=== PATIENT | male | born 1940 | race Caucasian/White ===

== ENCOUNTER 2019-06-30 07:52 | Inpatient (IN) | payer MEDICARE, OTHER ==
[2019-06-22 14:45] LABS: BASOPHILS # (AUTO) 0.1 X10'3 (0-0.2); BASOPHILS % (AUTO) 0.8 % (0-1); EOSINOPHILS # (AUTO) 0.2 X10'3 (0-0.9); EOSINOPHILS % (AUTO) 2.7 % (0-6); LYMPHOCYTES # (AUTO) 1.5 X10'3 (1.1-4.8); LYMPHOCYTES % (AUTO) 19.1 % (21-51); MEAN CORPUSCULAR HEMOGLOBIN 29.9 PG (27.0-31.0); MEAN CORPUSCULAR HGB CONC 33.8 g/dL (33.0-36.5); MEAN CORPUSCULAR VOLUME 88.3 FL (78-98); MEAN PLATELET VOLUME 7.8 FL (7.4-10.4); MONOCYTES # (AUTO) 0.6 X10'3 (0-0.9); MONOCYTES % (AUTO) 7.9 % (2-12); NEUTROPHILS # (AUTO) 5.4 X10'3 (1.8-7.7); NEUTROPHILS % (AUTO) 69.5 % (42-75); PRE OP HEMOGLOBIN 15.2 g/dL (14.0-17.9); PRE OP PLATELET COUNT 273 X10'3 (140-440); RED CELL DISTRIBUTION WIDTH 13.6 % (11.5-14.5)
[2019-06-22 14:51] LABS: ALBUMIN 3.7 G/DL (3.4-5.0); ALBUMIN/GLOBULIN RATIO 1.2 (1.1-1.5); ALKALINE PHOSPHATASE 81 IU/L (46-116); BLOOD UREA NITROGEN 25 MG/DL (7-18); BUN/CREATININE RATIO 17.7 (5.4-32.0); CALCIUM 9.1 MG/DL (8.5-10.1); CHLORIDE 105 MMOL/L (99-107); CREATININE 1.41 MG/DL (0.60-1.10); PRE OP ALT 16 U/L (30-65); PRE OP ANION GAP 7 (8-16); PRE OP AST 19 U/L (10-37); PRE OP BILIRUB, TOTAL 0.7 MG/DL (0.0-1.0); PRE OP GLUCOSE 99 MG/DL (70-104); PRE OP POTASSIUM 3.5 MMOL/L (3.4-5.1); PRE OP SODIUM 145 MMOL/L (135-145); TOTAL CARBON DIOXIDE 33.1 MMOL/L (24-32); TOTAL PROTEIN 6.7 G/DL (6.4-8.2); eGFR 49 ML/MIN
[2019-06-30] VITALS (17 sets, daily range): BP systolic 65–156; BP diastolic 32–85
[~2019-06-30] VITALS: Ht 177.8 cm; Wt 80.1 kg
[~2019-06-30 07:52] MED LIST: AMLO2.5T2 PO; ASPI-1265 PO; BUPIVAcaine/PF 2.5mg/ml (0.25%) 10ml vial ONE; FINA5TAB11 PO; FLO0.4C PO; FOSI40TA5 PO; HCTZ25T PO; MELO15TA13 PO; SOLI10TA2 PO; cefazolin/dext.iso 2gm/50ml 50 ML IV ONE; famotidine 20mg tablet PO ONE; ringers solution, lacted 1,000 ML IV SCH
[2019-06-30] MEDS ORDERED: LIDOcaine 1% (10mg/ml) 2ml vial ONE (09:22)
[2019-06-30] MEDS ORDERED: LIDOcaine 0.5% (5mg/ml) 50ml vial ONE (09:53)
[2019-06-30] MEDS ORDERED: ringers solution, lacted 1,000 ML IV SCH (10:33)
[2019-06-30] MEDS ORDERED: morphine 4 MG/ML inj SYRINge IV PRN (10:35)
[2019-06-30] MEDS ORDERED: proCHLORperazine 10 MG/2 ml inj IV PRN (10:35)
[2019-06-30] MEDS ORDERED: morphine 2 MG/ML inj. syringe IV PRN (10:35)
[2019-06-30] MEDS ORDERED: ondansetron/PF 4mg/2ml inj IV PRN (10:35)
[2019-06-30] MEDS ORDERED: meperidine/PF 25mg/ml syringe IV PRN ×3 (10:35)
[2019-06-30] MEDS ORDERED: fentaNYL/PF 50MCG/1 ML 2ML syringe ONE (11:02)
[2019-06-30] MEDS ORDERED: propofol inj 20 ML IV ONE (11:09)
[2019-06-30] MEDS ORDERED: midazolam 2 mg/2 ml injection ONE (11:09)
--- NOTE | 2019-06-30 11:28 | NUR ---
[facility] accompanied by Anesthesiologist ANDREA and report given by Anesthesiolgist. Right hand wrapped with splint, fingers good cap refill, patient sleepy and not yet responsive to questions, mask to 10L VS WNL, 20G IV to left hand IVF LR at 100cc/hr. Will continue to monitor.
[2019-06-30] MEDS ORDERED: atropine 0.1mg/ml 10ml syringe IV ONE (12:00)
[2019-06-30] MEDS ORDERED: ketorolac tromethamine 15mg/ml inj. IV ONE (12:55)
[2019-06-30] MEDS ORDERED: acetaminophen 1,000mg/100ml IV 100 ML IV ONE (12:55)
--- NOTE | 2019-06-30 13:00 | NUR ---
1145 - Patient woke up alert and responsive, oriented, appropriate, all VS normal. On RA. 1155 - pt had episode of bradycardia, dropped slowly from 50s to 40s to 30s and below 20, pulse remained palpable, BP 60s/30s, pt unresponsive. Feet elevated, bolus started, Dr Matthew was called, crash cart brought to bedside. 1200 - Dr Matthew at bedside, HR not improving, 0.2 atropine given from crash cart, EKG ordered. HR improved almost immediately, BP back up to 110s/60s, pt more responsive. 1215 - Pt sustaining HR in the low 40s, EKG done and reviewed by Dr Matthew. Dr Larios informed of incident and called hospitalist and field hockey and lacrosse coach for consultation. 1230 - Pt HR sustaining 50s, at bedside and has been given full update by Dr Matthew and myself. 1245 - Dr Galloway at bedside reviewed for admission, recommends admission to PCU, made Dr Brown aware and he states he will come tomorrow to assess patient for a pacemaker. Pt to be admitted to ACCE unit, Dr Larios called Dr Cade for admission consult. 1300 - Pt complaining of more pain but due to concern related to bradycardia and hypotension, I requested different pain med orders from Dr Matthew, he ordered tylenol IV and toradol. Will order and administer. 1345 - Pt pain better controlled states down from 11/02 to 08/03. 1415 - Pt continues to sustain HR in mid 50s and is to be transferred to ACCE 317.
[2019-06-30] MEDS: traMADol 50MG tablet PO PRN ×2 (14:00→21:01)
--- NOTE | 2019-06-30 14:58 | NUR ---
Pt transferred to ACCE 317 after report given to BURKE Bean and charge nurse made aware of recent events. Pt belongings sent with patient along with chart and is at bedside. BLL, call light within reach. Post op VS stable. Please see prior narrative note for description of events in PACU.
--- NOTE | 2019-06-30 17:59 | NUR ---
Problems reprioritized. Patient report given, questions answered & plan of care reviewed with BURKE Rose.
--- NOTE | 2019-06-30 18:45 | NUR ---
Patient in room MED 313. I have received report from Carmen TURK and had the opportunity to ask questions and assume patient care.
[2019-06-30] MEDS: finasteride 5mg tablet PO SCH (20:52)
[2019-06-30] MEDS: oxybutynin 5mg tablet PO SCH (20:52)
[2019-06-30] MEDS ORDERED: oxybutynin 5mg tablet PO SCH (21:00)
[2019-07-01] VITALS (16 sets, daily range): BP systolic 101–143; BP diastolic 46–80
--- NOTE | 2019-07-01 06:23 | NUR ---
Patient in room MED 313. I have received report from Chandra TURK and had the opportunity to ask questions and assume patient care.
--- NOTE | 2019-07-01 06:26 | NUR ---
Problems reprioritized. Patient report given, questions answered & plan of care reviewed with Oliverio TURK.
[2019-07-01] MEDS: oxybutynin 5mg tablet PO SCH ×3 (07:35→20:22)
[2019-07-01] MEDS: tamsulosin 0.4mg capsule PO SCH (07:35)
[2019-07-01] MEDS: aspirin 81mg tab.chew PO SCH (07:36)
[2019-07-01] MEDS: traMADol 50MG tablet PO PRN ×2 (07:36→14:22)
--- NOTE | 2019-07-01 08:43 | NUR ---
Called Dr. Quiroga office and left a message with his office. Letting them know patient is willing to have a pace maker placed. Office personnel said they will notify
[2019-07-01 09:29] LABS: BASOPHILS # (AUTO) 0.1 X10'3 (0-0.2); BASOPHILS % (AUTO) 0.9 % (0-1); EOSINOPHILS # (AUTO) 0.1 X10'3 (0-0.9); EOSINOPHILS % (AUTO) 0.8 % (0-6); HEMATOCRIT 44.1 % (42.0-52.0); HEMOGLOBIN 15.2 g/dl (14.0-17.9); LYMPHOCYTES % (AUTO) 12.7 % (21-51); MEAN CORPUSCULAR HEMOGLOBIN 30.6 PG (27.0-31.0); MEAN CORPUSCULAR HGB CONC 34.5 g/dL (33.0-36.5); MEAN CORPUSCULAR VOLUME 88.6 FL (78-98); MEAN PLATELET VOLUME 7.7 FL (7.4-10.4); MONOCYTES # (AUTO) 0.6 X10'3 (0-0.9); MONOCYTES % (AUTO) 6.8 % (2-12); NEUTROPHILS # (AUTO) 6.4 X10'3 (1.8-7.7); NEUTROPHILS % (AUTO) 78.8 % (42-75); PLATELET COUNT 243 X10'3 (140-440); RED BLOOD COUNT 4.98 X10'6 (4.70-6.10); RED CELL DISTRIBUTION WIDTH 13.8 % (11.5-14.5); WHITE BLOOD COUNT 8.2 X10'3 (4.5-11.0)
[2019-07-01 09:33] LABS: ALBUMIN 3.8 G/DL (3.4-5.0); ANION GAP 9 (8-16); BLOOD UREA NITROGEN 23 MG/DL (7-18); CALCIUM 9.3 MG/DL (8.5-10.1); CHLORIDE 104 MMOL/L (99-107); CREATININE 1.28 MG/DL (0.60-1.10); GLUCOSE 95 MG/DL (70-104); POTASSIUM 3.6 MMOL/L (3.5-5.1); SODIUM 142 MMOL/L (135-145); TOTAL CARBON DIOXIDE 28.7 MMOL/L (24-32); eGFR 54 ML/MIN
--- NOTE | 2019-07-01 10:45 | NUR ---
DR. KILGORE PAGED: PAGER ID: [phone] MESSAGE: [phone]: URIAS - was ramon notified? cardiology has not seen patient. is on-call today. nurse jim [phone]
--- NOTE | 2019-07-01 11:06 | NUR ---
DR. DOMINGUEZ CALLED BACK. NEW ORDERS RECEIVED: NPO NOW, CONSENT FOR PPM, SCHEDULE PPM INSERTION FOR 1500, ALERT [facility] REP.
--- NOTE | 2019-07-01 11:09 | NUR ---
CASUALTY CLAIMS SUPERVISOR NOTIFIED OF PPM INSERTION TIME OF 1500, STATED SHE WILL ALERT THE CREW
--- NOTE | 2019-07-01 11:18 | NUR ---
[facility] NUMBER CALLED - THEY WILL ALERT ON-CALL REP, JOSE ARMANDO RENE, ABOUT PPM INSERTION TIME OF 1500. 1119: АННА CALLED BACK SHE KNOWS ABOUT THE IMPLANT PLAN AT 1500
[2019-07-01] MEDS ORDERED: LIDOcaine 1% W/epiNEPHrine 1:100,000 20ml vial ONE (14:40)
[2019-07-01] MEDS ORDERED: fentaNYL/PF 50MCG/1 ML 2ML syringe ONE (14:40)
[2019-07-01] MEDS ORDERED: midazolam 2 mg/2 ml injection ONE ×2 (14:40→15:22)
[2019-07-01] MEDS ORDERED: ceFAZolin 1000mg inj ONE (14:40)
[2019-07-01] MEDS ORDERED: verapamil 2.5 mg/ml inj IV ONE (15:15)
[2019-07-01] MEDS ORDERED: metoprolol tartrate 1mg/ml inj IV ONE (15:28)
[2019-07-01] MEDS ORDERED: HYDROcodone/acetaminophen 5mg/325mg tablet PO PRN (16:50)
[2019-07-01] MEDS ORDERED: sotalol 80mg tablet PO ONE (17:00)
[2019-07-01] MEDS: HYDROcodone/acetaminophen 10/325mg tab PO PRN (17:21)
--- NOTE | 2019-07-01 17:25 | NUR ---
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 Can we get Zofran?
[2019-07-01] MEDS ORDERED: ondansetron/PF 4mg/2ml inj IV PRN (17:30)
[2019-07-01] MEDS ORDERED: vancomycin/NS 1 GM ADD-VANTAGE 250 ML X 1 DOSE IV ONE (18:00)
[2019-07-01] MEDS ORDERED: sotalol 80mg tablet PO SCH (18:00)
--- NOTE | 2019-07-01 18:33 | NUR ---
Problems reprioritized. Patient report given, questions answered & plan of care reviewed with Chandra RN.
--- NOTE | 2019-07-01 19:30 | NUR ---
Patient in room MED 313. I have received report from Oliverio TURK and had the opportunity to ask questions and assume patient care.
[2019-07-01] MEDS: finasteride 5mg tablet PO SCH (20:22)
[2019-07-01] MEDS: sotalol 80mg tablet PO SCH (20:23)
[2019-07-02] VITALS: BP 139/76
[2019-07-02 02:00] VITALS: BP 139/76
[2019-07-02 06:00] VITALS: BP 116/76
--- NOTE | 2019-07-02 06:20 | NUR ---
Patient in room MED 313. I have received report from BURKE Artis and had the opportunity to ask questions and assume patient care.
[2019-07-02] MEDS: aspirin 81mg tab.chew PO SCH (07:25)
[2019-07-02] MEDS: sotalol 80mg tablet PO SCH (07:25)
[2019-07-02] MEDS: oxybutynin 5mg tablet PO SCH ×2 (07:25→13:00)
[2019-07-02] MEDS: tamsulosin 0.4mg capsule PO SCH (07:25)
[2019-07-02 11:00] VITALS: BP 108/79
[2019-07-02] MEDS: HYDROcodone/acetaminophen 10/325mg tab PO PRN (13:28)
[2019-07-02] MEDS ORDERED: SOTA80TA73 PO (14:07)
[2019-07-02] MEDS ORDERED: APIX5TAB3 PO (14:10)
--- NOTE | 2019-07-02 14:28 | NUR ---
Called in prescriptions to [facility] in [place].
--- NOTE | 2019-07-02 15:49 | NUR ---
Patient stable for discharge per MD orders. Prescriptions called in to [facility] in [place]. All discharge instructions reviewed and questions answered. Education provided; pacemaker ID card provided. Patient verbalized understanding of teaching. PIV discontinued, cannula intact. Clean, dry dressing in place. All personal belongings collected and sent with patient. Patient wearing sling per MD orders. Patient wheeled out of facility by hospital personnel at 1504.
--- NOTE | 2019-07-03 12:58 | NUR ---
Case management DC follow up: spoke to pt via telephone: reports, "doing fine". pt states "went in for carpal tunnel surgery, came out with a pacemaker". Surg site CDI, no s/s infection noted. R hand surg/still swollen, darker bruising is subsiding, CDI, no oozing, odor or s/s infection. pt understands post op after care for both pacer and carpal tunnel surgery. Denies cp, emergent general pain, SOB, resp distress, NV, dizziness, abd pain, KRUGER. remains afebril. verbalizes understanding of s/s that would warrant 9-/ER visit for evaluation. acknowledges need to follow up w/PCP. Kevin/ 07/09, Dr Larios/07/10. verbalizes understanding of meds & why prescribed, taking as ordered, no ase noted r/t polypharmacy. needs met, questions answered at DC, no further questions at this time.
== END 2019-07-02 15:04 | disposition home or self-care (01) | DRG 243 ==
LOC: PAS 07:52 → MED 3N 13:55 → OBSVTOIN 13:55
PROVIDERS: ADMIT Internal Medicine; ATTEND Internal Medicine
PROC: 01N50ZZ Release Median Nerve, Open Approach (ICD-10-PCS; principal; 2019-06-30 10:53)
PROC: 0JH606Z Insertion of Pacemaker, Dual Chamber into Chest Subcutaneous Tissue and Fascia, Open Approach (ICD-10-PCS; 2019-07-01)
PROC: 02H63JZ Insertion of Pacemaker Lead into Right Atrium, Percutaneous Approach (ICD-10-PCS; 2019-07-01)
PROC: 02HK3JZ Insertion of Pacemaker Lead into Right Ventricle, Percutaneous Approach (ICD-10-PCS; 2019-07-01)
DX: I49.5 Sick sinus syndrome (principal); I97.191 Other postprocedural cardiac functional disturbances following other surgery; G56.01 Carpal tunnel syndrome, right upper limb; I12.9 Hypertensive chronic kidney disease with stage 1 through stage 4 chronic kidney disease, or unspecified chronic kidney disease; I48.91 Unspecified atrial fibrillation; M19.90 Unspecified osteoarthritis, unspecified site; N18.3 Chronic kidney disease, stage 3 (moderate); R55 Syncope and collapse; N40.0 Benign prostatic hyperplasia without lower urinary tract symptoms; Z79.01 Long term (current) use of anticoagulants; Z95.0 Presence of cardiac pacemaker; Z79.899 Other long term (current) drug therapy; Z79.82 Long term (current) use of aspirin
CPT/HCPCS: 33208; 36415; 71046; 80048; 80053; 82948; 85025; 87081; 93005; 99152; 99153; A4215; A4565; A4620; A6222; A6449; C1785; C1898; GO378; J0131; J0461; J0690; J1885; J2001; J2250; J2405; J2704; J3010; J3370; J3490; J7120

== ENCOUNTER 2019-07-11 12:35 | Outpatient (CLI) | payer MEDICARE, OTHER ==
[~2019-07-11 12:35] MED LIST changes: +APIX5TAB3 PO; -BUPIVAcaine/PF 2.5mg/ml (0.25%) 10ml vial ONE; -HCTZ25T PO; -MELO15TA13 PO; +SOTA80TA73 PO; -cefazolin/dext.iso 2gm/50ml 50 ML IV ONE; -famotidine 20mg tablet PO ONE; -ringers solution, lacted 1,000 ML IV SCH
== END 2019-07-11 23:59 | disposition home or self-care (01) ==
LOC: VAS 12:35
PROVIDERS: ATTEND Internal Medicine Cardiovascular Disease
DX: R22.32 Localized swelling, mass and lump, left upper limb (principal); Z95.0 Presence of cardiac pacemaker
CPT/HCPCS: 93971

== ENCOUNTER 2020-03-01 17:08 | Emergency (ER) | payer MEDICARE, OTHER ==
[~2020-03-01] VITALS: Ht 177.8 cm; Wt 65.0 kg
[2020-03-01] MEDS ORDERED: LIDOcaine 1% W/epiNEPHrine 1:200,000 10ml vial IJ ONE (18:30)
[2020-03-01] MEDS ORDERED: TETanus/Pertussis (Acell)/Diphther VAC/PF (Tdap-Adult) 0.5ml syringe IMVAC ONE (18:30)
[2020-03-01] MEDS ORDERED: LIDOcaine 1% w/epiNEPHrine 1:200,000 30ml vial IJ ONE (18:35)
[2020-03-01 20:04] VITALS: BP 159/80
== END 2020-03-01 20:04 | disposition home or self-care (01) ==
LOC: ER 17:09
DX: S61.211A Laceration without foreign body of left index finger without damage to nail, initial encounter (principal); I10 Essential (primary) hypertension; Z95.0 Presence of cardiac pacemaker; Z98.890 Other specified postprocedural states; Z79.899 Other long term (current) drug therapy; Z79.82 Long term (current) use of aspirin; X58.XXXA Exposure to other specified factors, initial encounter; Y93.89 Activity, other specified; Y92.89 Other specified places as the place of occurrence of the external cause; Y99.8 Other external cause status
CPT/HCPCS: 12002; 90471; 90715; 99283

== ENCOUNTER 2021-05-01 08:58 | Day surgery (SDC) | payer MEDICARE, OTHER ==
[2021-04-23 14:47] LABS: BASOPHILS # (AUTO) 0.1 X10'3 (0-0.2); BASOPHILS % (AUTO) 0.8 % (0-1); EOSINOPHILS # (AUTO) 0.2 X10'3 (0-0.9); EOSINOPHILS % (AUTO) 2.7 % (0-6); LYMPHOCYTES # (AUTO) 1.4 X10'3 (1.1-4.8); LYMPHOCYTES % (AUTO) 21.5 % (21-51); MEAN CORPUSCULAR HEMOGLOBIN 30.8 PG (27.0-31.0); MEAN CORPUSCULAR VOLUME 90.5 FL (78-98); MEAN PLATELET VOLUME 7.5 FL (7.4-10.4); MONOCYTES # (AUTO) 0.6 X10'3 (0-0.9); MONOCYTES % (AUTO) 9.3 % (2-12); NEUTROPHILS # (AUTO) 4.4 X10'3 (1.8-7.7); NEUTROPHILS % (AUTO) 65.7 % (42-75); PRE OP HEMATOCRIT 46.9 % (42.0-52.0); PRE OP PLATELET COUNT 229 X10'3 (140-440); RED BLOOD COUNT 5.18 X10'6 (4.70-6.10); RED CELL DISTRIBUTION WIDTH 13.8 % (11.5-14.5)
[2021-04-23 15:16] LABS: ALBUMIN 3.7 G/DL (3.4-5.0); ALBUMIN/GLOBULIN RATIO 1.1 (1.1-1.5); ALKALINE PHOSPHATASE 88 IU/L (46-116); BLOOD UREA NITROGEN 18 MG/DL (7-18); BUN/CREATININE RATIO 16.1 (5.4-32.0); CALCIUM 9.1 MG/DL (8.5-10.1); CHLORIDE 103 MMOL/L (99-107); CREATININE 1.12 MG/DL (0.60-1.10); PRE OP ALT 22 U/L (30-65); PRE OP ANION GAP 4 (8-16); PRE OP AST 20 U/L (10-37); PRE OP BILIRUB, TOTAL 0.5 MG/DL (0.0-1.0); PRE OP GLUCOSE 105 MG/DL (70-104); PRE OP POTASSIUM 3.8 MMOL/L (3.4-5.1); PRE OP SODIUM 141 MMOL/L (135-145); TOTAL CARBON DIOXIDE 33.7 MMOL/L (24-32); TOTAL PROTEIN 7.2 G/DL (6.4-8.2); eGFR 63 ML/MIN
[2021-05-01] VITALS (21 sets, daily range): BP systolic 78–157; BP diastolic 40–77
[~2021-05-01] VITALS: Ht 177.8 cm; Wt 80.9 kg
[~2021-05-01 08:58] MED LIST changes: +ACET-1025 PO; -ASPI-1265 PO; +DOCUMENT DATE & TIME OF BETA-BLOCKER PO ONE; -FOSI40TA5 PO; +FOSI40TA71 PO; +HYDR25TA4 PO; +MULT-1168; +cefazolin/dext.iso 2gm/50ml IV ONE; +famotidine 20mg tablet PO ONE; +tranexamic acid inj. 1,000 MG in 0.7% saline 100 ML PMX IV ONE; +vancomycin 1,500 MG in NS 300ml IV soln IV ONE
[2021-05-01] MEDS ORDERED: cloNIDine hcl/PF 100mcg/ml inj ONE (09:32)
[2021-05-01] MEDS ORDERED: vancomycin 1,000mg inj ONE (09:32)
[2021-05-01] MEDS ORDERED: ketorolac trometh. 30mg/ml inj. ONE (09:32)
[2021-05-01] MEDS ORDERED: ROPIVAcaine 0.5% (5mg/ml) 30ml vial ONE (09:32)
[2021-05-01] MEDS: ringers solution, lacted 1,000 ML IV SCH ×2 (09:56→15:01)
[2021-05-01] MEDS ORDERED: tetracaine 1% (10mg/ml) pres. free inj. ONE (10:20)
[2021-05-01] MEDS ORDERED: meperidine/PF 25mg/ml syringe IV PRN ×3 (10:30)
[2021-05-01] MEDS ORDERED: ondansetron/PF 4mg/2ml inj IV PRN ×2 (10:30→13:05)
[2021-05-01] MEDS ORDERED: morphine 2 MG/ML inj. syringe IV PRN (10:30)
[2021-05-01] MEDS ORDERED: proCHLORperazine 10 MG/2 ml inj IV PRN (10:30)
[2021-05-01] MEDS ORDERED: ringers solution, lacted 1,000 ML IV SCH (10:30)
[2021-05-01] MEDS ORDERED: morphine 4 MG/ML inj SYRINge IV PRN (10:30)
[2021-05-01 10:31] LABS: PRE OP PARTIAL THROMB. TIME 27 SECONDS (22-32)
[2021-05-01] MEDS ORDERED: fentaNYL/PF 50MCG/1 ML 2ML syringe ONE (10:32)
[2021-05-01] MEDS ORDERED: MIDAZolam 1mg/ml 10ml vial ONE (10:32)
--- NOTE | 2021-05-01 12:57 | NUR ---
Received from OR via , accompanied by Anesthesiologist DR GILL and report given by Anesthesiolgist. PT PRESENTS WITH 20G RIGHT WRIST, DRESSING ON LEFT KNEE DRY AND INTACT WITH WRAP URIAH DRESSING AND POWDER PACK. VSS Addendum: 05/01/21 at 1310 by Karla Sherwood RN, RN Amended: Links added.
[2021-05-01] MEDS ORDERED: magnesium hydroxide 30ml (MOM) UD suspension PO PRN (13:05)
[2021-05-01] MEDS ORDERED: bisacodyl 10mg suppository rectal RC PRN (13:05)
[2021-05-01] MEDS ORDERED: HYDROcodone/acetaminophen 10/325mg tab PO PRN (13:05)
[2021-05-01] MEDS ORDERED: HYDROmorphone 1 mg/ml syringe IV PRN (13:05)
[2021-05-01] MEDS ORDERED: acetaminophen 325mg tablet PO PRN (13:05)
[2021-05-01] MEDS ORDERED: diphenhydrAMINE 25mg capsule PO PRN ×2 (13:05)
[2021-05-01] MEDS: potassium Cl 20mEq in NS 1,000 ML IV SCH ×2 (13:05→22:28)
--- NOTE | 2021-05-01 14:37 | NUR ---
Report called to receiving nurse LUZ MARINA TURK. Transferred via HOSPITAL BED BY OR DRAWER IN STITCH BONDING MACHINE. ONE PATIENT BAG SENT WITH PT TO ROOM 350B. Special Issues communicated to receiving nurse. Addendum: 05/01/21 at 1447 by Karla Sherwood RN, RN Amended: Links added.
[2021-05-01] MEDS: ceFAZolin/D5W- 1GM premix 50 ML IV SCH (17:26)
--- NOTE | 2021-05-01 18:36 | NUR ---
Gave report to Nhi TURK.
--- NOTE | 2021-05-01 18:42 | NUR ---
Patient in room [facility]RIST[facility] 350. I have received report from BURKE Nguyễn and had the opportunity to ask questions and assume patient care.
[2021-05-01] MEDS ORDERED: vancomycin/NS 1 GM ADD-VANTAGE 250 ML IV SCH (20:00)
[2021-05-01] MEDS: sotalol 80mg tablet PO SCH (20:45)
[2021-05-01] MEDS: oxybutynin 5mg tablet PO SCH (20:46)
[2021-05-01] MEDS ORDERED: sennosides 8.6mg tablet PO SCH (21:00)
[2021-05-01] MEDS ORDERED: finasteride 5mg tablet PO SCH (21:00)
[2021-05-02] VITALS: BP 128/58
[2021-05-02] MEDS: ceFAZolin/D5W- 1GM premix 50 ML IV SCH (00:46)
[2021-05-02 04:00] VITALS: BP 144/66
[2021-05-02 06:22] LABS: BASOPHILS # (AUTO) 0.1 X10'3 (0-0.2); BASOPHILS % (AUTO) 0.6 % (0-1); EOSINOPHILS # (AUTO) 0.2 X10'3 (0-0.9); EOSINOPHILS % (AUTO) 1.7 % (0-6); HEMOGLOBIN 13.3 g/dl (14.0-17.9); LYMPHOCYTES # (AUTO) 0.9 X10'3 (1.1-4.8); LYMPHOCYTES % (AUTO) 10.3 % (21-51); MEAN CORPUSCULAR HEMOGLOBIN 30.6 PG (27.0-31.0); MEAN CORPUSCULAR VOLUME 89.7 FL (78-98); MEAN PLATELET VOLUME 7.6 FL (7.4-10.4); MONOCYTES # (AUTO) 0.9 X10'3 (0-0.9); MONOCYTES % (AUTO) 10.5 % (2-12); NEUTROPHILS # (AUTO) 6.8 X10'3 (1.8-7.7); NEUTROPHILS % (AUTO) 76.9 % (42-75); PLATELET COUNT 202 X10'3 (140-440); RED BLOOD COUNT 4.34 X10'6 (4.70-6.10); RED CELL DISTRIBUTION WIDTH 13.6 % (11.5-14.5); WHITE BLOOD COUNT 8.8 X10'3 (4.5-11.0)
[2021-05-02 06:36] LABS: ALANINE AMINOTRANSFERASE 12 U/L (12-78); ALBUMIN 2.8 G/DL (3.4-5.0); ALBUMIN/GLOBULIN RATIO 1.1 (1.1-1.5); ALKALINE PHOSPHATASE 65 IU/L (46-116); ANION GAP 7 (8-16); ASPARTATE AMINO TRANSFERASE 12 U/L (10-37); BILIRUBIN,TOTAL 0.8 MG/DL (0.1-1.0); BLOOD UREA NITROGEN 20 MG/DL (7-18); BUN/CREATININE RATIO 18.2 (5.4-32.0); CALCIUM 8.3 MG/DL (8.5-10.1); CHLORIDE 106 MMOL/L (99-107); GLUCOSE 106 MG/DL (70-104); POTASSIUM 3.6 MMOL/L (3.5-5.1); SODIUM 141 MMOL/L (135-145); TOTAL CARBON DIOXIDE 28.5 MMOL/L (24-32); TOTAL PROTEIN 5.3 G/DL (6.4-8.2); eGFR 65 ML/MIN
[2021-05-02 08:00] VITALS: BP 137/62
[2021-05-02] MEDS ORDERED: amLODIPine 2.5mg tablet PO SCH (08:00)
[2021-05-02] MEDS ORDERED: lisinopril 20mg tablet PO SCH (08:00)
[2021-05-02] MEDS ORDERED: tamsulosin 0.4mg capsule PO SCH (08:00)
[2021-05-02] MEDS ORDERED: apixaban 5mg tablet PO SCH (08:00)
[2021-05-02] MEDS ORDERED: HYDROchlorothiazide 12.5mg capsule PO SCH (08:00)
[2021-05-02] MEDS: sotalol 80mg tablet PO SCH (08:33)
[2021-05-02] MEDS: oxybutynin 5mg tablet PO SCH ×2 (08:34→15:13)
[2021-05-02] MEDS: HYDROcodone/acetaminophen 10/325mg tab PO PRN ×2 (11:08→16:44)
[2021-05-02 11:26] VITALS: BP 150/82
[2021-05-02] MEDS ORDERED: ondansetron 4mg rapidly disintigrating tab PO PRN (15:05)
[2021-05-02] MEDS ORDERED: HYDR-3972 PO (15:43)
[2021-05-02] MEDS: potassium Cl 20mEq in NS 1,000 ML IV SCH (15:45)
--- NOTE | 2021-05-02 16:51 | NUR ---
Joint Surgery Consult: Pt s/p L TKA this admit per EMR. Pt seen by FRAN for written/verbal high protein ed w/ RD contact information provided. FRAN encouraged pt to contact dietitian's office if further questions/concerns. Addendum: 05/02/21 at [address] Amended: Links added.
--- NOTE | 2021-05-02 17:00 | NUR ---
Patient discharged. Education and review of discharge medication, possible ASE, incision care, URIAH drsg, preferred pharmacy, and f/u care all discussed with pt. Pt. states he can not be discharge on a blood thinner r/t pacer. Pt. provided with extra bandages, urinals. IV DC'd cannula intact, drsg placed. Friend at bedside. Pt. escorted in w/c downstairs with all of his belongings.
== END 2021-05-02 16:51 | disposition home or self-care (01) ==
LOC: PAS 08:58 → SUR 3N 14:51 → PAS 05-02 16:51
PROVIDERS: ATTEND Orthopaedic Surgery
DX: M17.12 Unilateral primary osteoarthritis, left knee (principal); I10 Essential (primary) hypertension; Z98.890 Other specified postprocedural states; Z20.822 Contact with and (suspected) exposure to COVID-19; Z95.0 Presence of cardiac pacemaker; Z79.01 Long term (current) use of anticoagulants; Z79.899 Other long term (current) drug therapy
CPT/HCPCS: 27447; 36415; 80053; 82948; 85025; 85610; 85730; 86885; 86900; 86901; 86920; 87081; 93005; 97116; 97162; 97530; C1713; C1758; C1776; J0690; J0735; J1885; J2250; J2795; J3010; J3370; J3480; J3490; J7030; J7040; J7120; U0003; U0005; Z7506; Z7508; Z7512; A6455; A7000; A9272; G0378

== ENCOUNTER 2023-07-07 12:58 | Emergency (ER) | payer MEDICARE, OTHER ==
[~2023-07-07] VITALS: Ht 172.7 cm; Wt 72.4 kg
[~2023-07-07 12:58] MED LIST changes: -ACET-1025 PO; -DOCUMENT DATE & TIME OF BETA-BLOCKER PO ONE; -HYDR25TA4 PO; -MULT-1168; +POTA-206 PO; -cefazolin/dext.iso 2gm/50ml IV ONE; -famotidine 20mg tablet PO ONE; -tranexamic acid inj. 1,000 MG in 0.7% saline 100 ML PMX IV ONE; -vancomycin 1,500 MG in NS 300ml IV soln IV ONE
[2023-07-07 13:55] VITALS: BP 129/60; PULSE 62; TEMP 99; O2SAT 96
[2023-07-07] MEDS ORDERED: CYCL-1 PO (14:56)
[2023-07-07] MEDS ORDERED: PRED20TA PO (14:56)
[2023-07-07] MEDS: dexamethasone sod phosphate 10mg/ml inj PO STA (15:12)
[2023-07-07] MEDS: morphine 2 MG/ML inj. syringe IM ONE (15:14)
[2023-07-07] MEDS: ondansetron 4mg rapidly disintigrating tab PO ONE (15:14)
[2023-07-07 16:12] VITALS: RESP 16
== END 2023-07-07 17:19 | disposition home or self-care (01) ==
LOC: ER 13:00
DX: S16.1XXA Strain of muscle, fascia and tendon at neck level, initial encounter (principal); X58.XXXA Exposure to other specified factors, initial encounter; Y93.89 Activity, other specified; Y92.89 Other specified places as the place of occurrence of the external cause; Y99.8 Other external cause status; I10 Essential (primary) hypertension; Z95.0 Presence of cardiac pacemaker
CPT/HCPCS: 72125; 96372; 99285; J1100; J2270; 99284

== ENCOUNTER 2023-12-06 07:03 | Day surgery (SDC) | payer MEDICARE, OTHER ==
[2023-12-03 12:08] LABS: BASOPHILS # (AUTO) 0.1 X10'3 (0-0.2); BASOPHILS % (AUTO) 0.7 % (0-1); EOSINOPHILS # (AUTO) 0.1 X10'3 (0-0.9); EOSINOPHILS % (AUTO) 0.9 % (0-6); HEMATOCRIT 44.4 % (42.0-52.0); HEMOGLOBIN 14.5 g/dl (14.0-17.9); LYMPHOCYTES % (AUTO) 13.3 % (21-51); MEAN CORPUSCULAR HEMOGLOBIN 28.8 PG (27.0-31.0); MEAN CORPUSCULAR HGB CONC 32.7 g/dL (33.0-36.5); MEAN CORPUSCULAR VOLUME 88.1 FL (78-98); MEAN PLATELET VOLUME 7.5 FL (7.4-10.4); MONOCYTES # (AUTO) 0.8 X10'3 (0-0.9); MONOCYTES % (AUTO) 11.5 % (2-12); NEUTROPHILS # (AUTO) 5.3 X10'3 (1.8-7.7); NEUTROPHILS % (AUTO) 73.6 % (42-75); PLATELET COUNT 204 X10'3 (140-440); RED BLOOD COUNT 5.04 X10'6 (4.70-6.10); RED CELL DISTRIBUTION WIDTH 16.8 % (11.5-14.5); WHITE BLOOD COUNT 7.2 X10'3 (4.5-11.0)
[2023-12-03 12:14] LABS: ALBUMIN 3.3 G/DL (3.4-5.0); ANION GAP 7 (8-16); BLOOD UREA NITROGEN 20 MG/DL (7-18); BUN/CREATININE RATIO 16.8 (10.0-20.0); CHLORIDE 101 MMOL/L (99-107); CREATININE 1.19 MG/DL (0.60-1.10); GLUCOSE 99 MG/DL (70-104); POTASSIUM 3.3 MMOL/L (3.5-5.1); SODIUM 141 MMOL/L (135-145); eGFR 59 ML/MIN
[2023-12-03 12:16] LABS: INR 1.4 INR; PROTHROMBIN TIME 14.4 SECONDS (9.0-12.0)
[~2023-12-06] VITALS: Ht 170.2 cm; Wt 72.1 kg
[2023-12-06] VITALS (17 sets, daily range): BP systolic 115–135; BP diastolic 76–100; PULSE 71–99; RESP 11–15; TEMP 97.9; O2SAT 95–99
[~2023-12-06 07:03] MED LIST changes: +CYCL-1 PO
[2023-12-06] MEDS ORDERED: normal saline 1000ml 1,000 ML IV SCH (07:20)
[2023-12-06] MEDS ORDERED: LORazepam 0.5 MG tablet PO ONE (07:20)
[2023-12-06] MEDS ORDERED: atropine 0.1mg/ml 10ml syringe IV ONE (07:20)
[2023-12-06] MEDS ORDERED: diphenhydrAMINE 25mg capsule PO ONE (07:20)
[2023-12-06] MEDS ORDERED: ROSU10TA72 PO (07:27)
[2023-12-06] MEDS ORDERED: HYDR25TA4 PO (07:27)
[2023-12-06] MEDS ORDERED: FLO0.4C PO (07:27)
[2023-12-06] MEDS ORDERED: SOTA80TA73 PO (07:28)
[2023-12-06] MEDS ORDERED: SOLI10TA7 PO (07:30)
[2023-12-06] MEDS: potassium Cl 20 mEq SR tablet PO STA (08:41)
[2023-12-06] MEDS: amiodarone 150mg/dext, iso-os 100 ML IV ONE (09:15)
[2023-12-06] MEDS: amiodarone/D5 360MG/200ML BAG 200 ML IV SCH (09:43)
[2023-12-06] MEDS: morphine 10mg/ml inj. IV ONE (12:15)
[2023-12-06] MEDS: MIDAZolam 1mg/ml 10ml vial IV ONE (12:15)
[2023-12-06] MEDS ORDERED: CARV-49 PO (14:13)
== END 2023-12-06 14:40 | disposition home or self-care (01) ==
LOC: SSTAY O 07:03
PROVIDERS: ATTEND Internal Medicine Cardiovascular Disease
DX: I48.19 Other persistent atrial fibrillation (principal); I48.0 Paroxysmal atrial fibrillation; I48.92 Unspecified atrial flutter; I11.0 Hypertensive heart disease with heart failure; I50.30 Unspecified diastolic (congestive) heart failure; E78.5 Hyperlipidemia, unspecified; Z79.01 Long term (current) use of anticoagulants; Z79.899 Other long term (current) drug therapy; Z95.0 Presence of cardiac pacemaker; Z98.890 Other specified postprocedural states; Z82.3 Family history of stroke
CPT/HCPCS: 36415; 80048; 84132; 85025; 85610; 92960; 93005; J0282; J2250; J2270; J7030; J2274

== ENCOUNTER 2023-12-31 11:52 | Day surgery (SDC) | payer MEDICARE, OTHER ==
[2023-12-30 13:59] LABS: BASOPHILS # (AUTO) 0.1 X10'3 (0-0.2); BASOPHILS % (AUTO) 1.1 % (0-1); EOSINOPHILS # (AUTO) 0.2 X10'3 (0-0.9); EOSINOPHILS % (AUTO) 2.3 % (0-6); HEMOGLOBIN 14.9 g/dl (14.0-17.9); LYMPHOCYTES # (AUTO) 1.1 X10'3 (1.1-4.8); LYMPHOCYTES % (AUTO) 15.3 % (21-51); MEAN CORPUSCULAR HEMOGLOBIN 28.6 PG (27.0-31.0); MEAN CORPUSCULAR HGB CONC 32.3 g/dL (33.0-36.5); MEAN CORPUSCULAR VOLUME 88.4 FL (78-98); MEAN PLATELET VOLUME 7.7 FL (7.4-10.4); MONOCYTES # (AUTO) 0.7 X10'3 (0-0.9); MONOCYTES % (AUTO) 10.4 % (2-12); NEUTROPHILS % (AUTO) 70.9 % (42-75); PLATELET COUNT 206 X10'3 (140-440); RED CELL DISTRIBUTION WIDTH 17.4 % (11.5-14.5); WHITE BLOOD COUNT 7.1 X10'3 (4.5-11.0)
[2023-12-30 14:22] LABS: ALBUMIN 3.3 G/DL (3.4-5.0); ANION GAP 4 (8-16); BLOOD UREA NITROGEN 25 MG/DL (7-18); BUN/CREATININE RATIO 19.7 (10.0-20.0); CALCIUM 9.2 MG/DL (8.5-10.1); CHLORIDE 104 MMOL/L (99-107); CREATININE 1.27 MG/DL (0.60-1.10); GLUCOSE 87 MG/DL (70-104); POTASSIUM 3.1 MMOL/L (3.5-5.1); PRO BRAIN NATRIURETIC PEPTIDE 12367 PG/ML (0-450); SODIUM 143 MMOL/L (135-145); TOTAL CARBON DIOXIDE 35.5 MMOL/L (24-32); eGFR 54 ML/MIN
[2023-12-30 14:32] LABS: APTT 28 SECONDS (22-32); INR 1.3 INR; PROTHROMBIN TIME 13.3 SECONDS (9.0-12.0)
[~2023-12-31] VITALS: Ht 172.7 cm; Wt 75.5 kg
[2023-12-31] VITALS (10 sets, daily range): BP systolic 112–158; BP diastolic 70–121; PULSE 78–94; RESP 10–12; TEMP 98.2; O2SAT 90–98
[~2023-12-31 11:52] MED LIST changes: -AMLO2.5T2 PO; +CARV-49 PO; -CYCL-1 PO; +HYDR25TA4 PO; -POTA-206 PO; -SOLI10TA2 PO; +SOLI10TA7 PO
[2023-12-31] MEDS ORDERED: POTA-205 PO (12:56)
[2023-12-31] MEDS ORDERED: FURO20TA4 PO (12:56)
[2023-12-31] MEDS: sodium bicarbonate 1meq/ml syr 150 ML in dextrose 5%-water 1,000 ML IV ONE (13:10)
[2023-12-31] MEDS: diphenhydrAMINE 25mg capsule PO PRN (13:10)
[2023-12-31] MEDS: LORazepam 0.5 MG tablet PO PRN (13:10)
[2023-12-31] MEDS: normal saline 1,000 ML IV SCH (13:10)
[2023-12-31] MEDS ORDERED: midazolam 1 mg/ML 2ml injection ONE (13:40)
[2023-12-31] MEDS ORDERED: verapamil 2.5 mg/ml inj IV ONE (13:40)
[2023-12-31] MEDS ORDERED: iohexol 350 MG/ML 50ML vial IV ONE (13:40)
[2023-12-31] MEDS ORDERED: heparin 1,000unit/ml 10ml vial 10 ML ONE (13:40)
[2023-12-31] MEDS ORDERED: fentaNYL/PF 50MCG/1 ML 2ML syringe ONE (13:40)
[2023-12-31] MEDS ORDERED: LIDOcaine 1% (10mg/ml) 2ml vial ONE (13:40)
[2023-12-31] MEDS ORDERED: nitroGLYCERIN 500mcg/5mL D5W 5 ML IV ONE (13:41)
[2023-12-31] MEDS ORDERED: iohexol 350MG/ML 100ml bottle IV ONE (13:41)
[2023-12-31] MEDS ORDERED: CARV-49 PO (15:13)
[2023-12-31] MEDS ORDERED: potassium Cl 20 mEq SR tablet PO STA (15:41)
[2023-12-31] MEDS ORDERED: furosemide 20 MG/2 ML vial IV ONE (15:45)
[2023-12-31] MEDS: potassium Cl 20 mEq SR tablet PO ONE (16:13)
[2023-12-31] MEDS: furosemide 20 MG/2 ML vial IV ONE (16:13)
[2023-12-31] MEDS ORDERED: SPIR25TA5 PO (16:35)
[2023-12-31] MEDS ORDERED: DAPA10TA PO (16:35)
[2024-01-03 08:28] LABS: ISTAT HGB MIX 14.6 g/dl (14.0-17.9); ISTAT Hct MIX 43 %PCV (42-52); ISTAT O2 SATURATION MIX VENOUS 57 % (60-80); ISTAT SOURCE BLNK
== END 2023-12-31 19:30 | disposition home or self-care (01) ==
LOC: SSTAY O 11:52
PROVIDERS: ATTEND Internal Medicine Cardiovascular Disease
DX: I42.0 Dilated cardiomyopathy (principal); I25.10 Atherosclerotic heart disease of native coronary artery without angina pectoris; I25.2 Old myocardial infarction; I11.0 Hypertensive heart disease with heart failure; I50.30 Unspecified diastolic (congestive) heart failure; I48.0 Paroxysmal atrial fibrillation; E78.5 Hyperlipidemia, unspecified; Z79.01 Long term (current) use of anticoagulants; Z79.899 Other long term (current) drug therapy; Z95.0 Presence of cardiac pacemaker; Z98.890 Other specified postprocedural states; Z82.3 Family history of stroke
CPT/HCPCS: 36415; 80048; 82803; 83880; 84132; 85014; 85025; 85610; 85730; 93005; 93460; 99152; 99153; A4663; A6258; A6402; C1725; C1751; C1769; C1894; J1644; J1940; J2001; J2250; J3010; J3490; J7030; J7070; Q0163; Q9967; 76937